=== PATIENT | female | born 1985 | race Caucasian/White ===

== ENCOUNTER 2018-06-25 09:52 | Inpatient (IN) | payer BC ==
--- NOTE | 2018-06-25 14:38 | HP ---
General Information - Reason for Visit IUP@40+6 admitted for SROM/early labor - General Information Maternal Age: 33 Grav: 2 Para: 0 SAB: 1 IEA: 0 Estimated Due Date: 06/19/18 Determined By: LMP Gestational Age in Weeks/Days: 40+6 Maternal Blood Type and Rh: A Positive - Results this Serology/RPR Result: Non-Reactive Rubella Result: Immune HBsAg Result: Negative HIV Result: Negative GBS Culture Result: Negative Past Medical History Pertinent Past Medical History: Non-Contributory Pertinent Past Surgical History: None Pertinent Family History: See Records Family History Comment: Father: bicuspid aortic valve - s/p replacement Mother: Meningioma Sister 1: multiple miscarriages Sister 2: SVT, ablation age 17 PGM: Breast cancer, leukemia PGF: diabetes, HTN, Skin cancer, metastatic squamous cell MGM: COPD, colon cancer MGF: diabetes, kidney disease - Antepartal Records Antepartal Records: Reviewed, Uncomplicated Review of Systems Constitutional: Uncomfortable CV Complaint: No Respiratory: Shortness of Breath: No Gastrointestinal: No Nausea/Vomiting Genitourinary: Leaking Fluid, No Dysuria, No Bleeding, Spotting Musculoskeletal: Contractions Neurological: No Headache, No Visual Changes Movement: Normal Exam Allergies/Adverse Reactions: Allergies Penicillins Allergy (Verified 06/25/18 10:44) Unknown Reaction Details Vital Signs 06/25/18 10:00 Temperature 98.8 F Pulse Rate 77 Respiratory 18 Rate Blood Pressure 128/87 (mmHg) O2 Sat by Pulse 100 Oximetry Lab Values - Entire Visit: Laboratory Tests 06/25/18 10:12 Vag Amniotic Fld Detect Positive - Measurements Height: 5 ft 7 in Weight: 189 lb Weight in lbs: 189.101829 Body Mass Index (BMI): 29.6 Pre- Weight: 150 lb Weight Gained This : 39 lbs and 0 ozs - Exam Breast: Breast Exam Deferred CVA: No CVA Tenderness Extremities: No Edema Heart: Normal Rhythm/Heart Sounds HEENT: No Significant Findings Lungs: Clear Bilaterally Rectal: Rectal Exam Deferred Reflexes: DTR 2+ Targeted Exam Findings See L&D Outpatient Visit Provider Note for Findings: N/A Estimated Weight: 8lbs Cervical Exam: 1cm Effacement: 50% Station: -1 Presenting Part: Vertex Membrane Status: SROM Amniotic Fluid Evaluation: Positive ROM Plus, Clear EFM Findings - External Monitor Findings Baseline Heart Rate: 120 External Monitor Findings: Accelerations Present, No Pattern of Variable or Late Decelerations, Variability Moderate External Monitor Findings Comment: No evidence metabolic acidemia Contractions: Irregular, Regular, Moderate, 45-90 Seconds Assessment/Plan - Assessment IUP@40+6, early labor VSS SROM, clear fluid Contractions q2-6, good resting tone, coping well with contractions No evidence of metabolic acidemia Pt desires no pain medication interventions May be amenable to augmentation given SROM, if labor does not progress Well supported by at bedside Anticipate progression to - Plan Plan: Admit - Anticipate Vaginal Delivery Plan Comment: Admit to L&D VE PRN Augmentation PRN - Date/Time of Admission Date of Admission: 06/25/18 Time of Admission: 10:45
[2018-06-25] MEDS ORDERED: Nalbuphine* 10 MG/ML 1 ML VIAL IV ONE (15:03)
[2018-06-25] MEDS ORDERED: Lactated Ringers 1000 ML Bag* 1,000 ML IV ONE (15:03)
[2018-06-25] MEDS ORDERED: Buffered Lidocaine 1% SYRIN* 1 ML/SYRINGE INTRADERM ONE (15:03)
[2018-06-25] MEDS ORDERED: Promethazine INJ(RESTRICTED)* 25 MG/ML 1 ML VIAL IV ONE (15:03)
[2018-06-25] MEDS ORDERED: Lactated Ringers 1000 ML Bag* 1,000 ML IV SCH (16:00)
--- NOTE | 2018-06-25 16:13 | PN ---
Progress Note - Progress Note Date of Service: 06/25/18 Note: Pt ambulating and using position changes to cope with contraction pain Pt remains afebrile, temp: 98.3 Contractions q2-4 minutes, good resting tone No evidence of metabolic acidemia VE: 1.5/70/-1 Pt with SROM x12 hours, discussed risks. vs. benefits of augmentation, given small cervical change, pt and opt to continue with expectant management Will repeat VE in 2-3 hours or sooner PRN Anticipate progression to active labor
--- NOTE | 2018-06-25 21:26 | PN ---
Progress Note - Progress Note Date of Service: 06/25/18 Note: Pt coping well with contraction pain at bedside and supportive Contractions q2-4 minutes, good resting tone No evidence of metabolic acidemia VE: /-1 Discussed IV pain medication options and nitrous oxide, pt opting out of pain meds at this time Anticipate progression to
--- NOTE | 2018-06-25 23:42 | PN ---
Progress Note - Progress Note Date of Service: 06/25/18 Note: Pt overwhelmed with contraction pain, requesting pain medication Risks vs. benefits of IV nubain/phenergan discussed, pt opts for this method of pain relief at bedside and supportive RNs at bedside to start IV Contractions q2-4 minutes, good resting tone No evidence of metabolic acidemia VE: 6/100/-1 Anticipate progression to
[2018-06-26 00:10] LABS: Hematocrit 37 % (33-41); Hemoglobin 12.6 g/dL (12.0-16.0); Mean Corpuscular HGB Conc 34 g/dL (31-36); Mean Corpuscular Hemoglobin 31 pg (27-31); Mean Corpuscular Volume 90 fL (80-97); Mean Platelet Volume 9.8 fL (7.4-10.4); Platelet Count 240 10^3/uL (150-450); Red Blood Count 4.08 10^6 /uL (3.70-4.87); Red Cell Distribution Width 13 % (10.5-15); White Blood Count 23.5 10^3/uL (3.5-10.8)
[2018-06-26 00:52] LABS: ABS Basophils 0 10^3/ul (0-0.2); ABS Eosinophils 0 10^3/ul (0-0.6); ABS Lymphocytes 1.1 10^3/ul (1.0-4.8); ABS Monocytes 0.8 10^3/ul (0-0.8); ABS Neutrophils 21.6 10^3/ul (1.5-7.7); ABS Nucleated RBC 0 10^3/ul; Eosinophil % 0 %; Lymphocyte % 4.6 %; Nucleated Red Blood Cells % 0
--- NOTE | 2018-06-26 03:10 | PN ---
Progress Note - Progress Note Date of Service: 06/26/18 Note: Pt with good relief from IV pain medication, now overwhelmed with contraction pain Contractions q2-4 minutes, good resting tone VE with good cervical change, 7.5/100/-1 Risks vs. benefits of nitrous oxide discussed with family, pt opting for this method of pain management Instructed on appropriate use Pharmacy consulted, okay to use nitrous oxide 2 hours after nubain/phenergan Will monitor baby and pt's vital signs at bedside and supportive Anticipate progression to
--- NOTE | 2018-06-26 06:03 | PN ---
Progress Note - Progress Note Date of Service: 06/26/18 Note: Pt with good relief using nitrous oxide, coping well Contractions q2-4 minutes, good resting tone VE: 9/100/0 Pt afebrile at bedside and supportive Anticipate progression to
--- NOTE | 2018-06-26 08:22 | PN ---
Progress Note - Progress Note Date of Service: 06/26/18 Note: Pt with good relief using nitrous oxide, coping well Contractions spacing, starting to push with strong contractions Pt 10cm/0 station Pt afebrile at bedside and supportive Anticipate progression to
--- NOTE | 2018-06-26 09:02 | PN ---
Progress Note - Progress Note Date of Service: 06/26/18 SOAP: Subjective: Pt struggling with ctx, has not yet begun to push actively. Some ctx stronger than others. Pt fatigued, coping fairly well. supportive. Attempted squatting with the squat bar, now side-lying in bed. Objective: FHR baseline 120, moderate variability, + accels, no decels Ctx Q 5 minutes, varying strength Cervical exam deferred Fluid clear BP 145/94, Temp 99.3 Pt voiding regularly Assessment: Pt was fully dilated on last exam, but not yet feeling a strong urge to push. Ctx spaced out, but appear to be increasing in frequency again. Possible fatigued uterus vs physiologic pause in ctx prior to second stage. No evidence of acidemia or chorioamnionitis. BP mildly elevated, likely due to pain, fatigue and stress. Plan: Offered Pitocin augmentation, pt declines at this time. Encourage restful positions, bearing down with strong ctx. When urge to push increases, will encourage more active pushing. Monitor BP, temp. Anticipate .
[2018-06-26] MEDS ORDERED: fentaNYL* 50 MCG/ML 2 ML VIAL (100 MCG VIAL) ONE (10:49)
[2018-06-26] MEDS ORDERED: Bupivacaine 0.25% SDV PF* 10 ML VIAL INJ ONE (10:49)
[2018-06-26] MEDS ORDERED: Oxytocin in LR* 20 UNITS/1,000 ML BAG IVPB ONE (11:04)
--- NOTE | 2018-06-26 11:05 | PN ---
Progress Note - Progress Note Date of Service: 06/26/18 SOAP: Subjective: Pt tried pushing with direction, initially made good progress, but struggling with the intensity of sensation to push effectively. Pulls away and closes legs when sensations become too intense. She has also been trying to coordinate using nitrous oxide with pushing which seems to be negatively impacting her effectiveness. at bedside, loving and supportive. Objective: FHR 125 per doppler, no deceleration with ctx UCs Q 4-5 minutes Fluid clear BP 131/71, temp 99.4 Assessment: Pt struggling with pushing given the intensity of sensation she is experiencing. No evidence of chorioamnionitis or acidemia. Plan: Pt requests pain relief. Recommend intrathecal. Pt agrees. Anesthesiologist Dr. Nunez notified, at bedside to perform. Recommend Pitocin augmentation to maximize time that pt is comfortable. Anticipate .
[2018-06-26] MEDS ORDERED: Phenylephrine 40 MCG/ML SYRINGE IV PUSH PRN ×2 (11:13)
[2018-06-26] MEDS ORDERED: Famotidine TAB* 20 MG PO PRN (11:13)
[2018-06-26] MEDS ORDERED: Sodium Citrate/Citric Acid* 15 ML UDC PO PRN (11:13)
[2018-06-26] MEDS ORDERED: Lactated Ringers 1000 ML Bag* 1,000 ML IV ONE (11:13)
[2018-06-26] MEDS ORDERED: Lactated Ringers 1000 ML Bag* 1,000 ML IV SCH ×2 (12:00→13:00)
[2018-06-26] MEDS ORDERED: ceFOXitin 2 GM IVPREMIX* 2 GM/50 ML BAG ONE (12:22)
[2018-06-26] MEDS ORDERED: Acetaminophen TAB* 325 MG PO PRN (12:24)
[2018-06-26] MEDS ORDERED: Dibucaine 1% 28.35 GM TUBE PR PRN (12:24)
[2018-06-26] MEDS ORDERED: Glycerin ADULT SUPP PR PRN (12:24)
[2018-06-26] MEDS ORDERED: Witch Hazel PAD* JAR TOPICAL PRN (12:24)
[2018-06-26] MEDS ORDERED: Simethicone TAB* 80 MG TAB.CHEW PO SCH (12:30)
[2018-06-26] MEDS ORDERED: ceFOXitin 2 GM IVPREMIX* 2 GM/50 ML BAG IVPB ONE (12:36)
[2018-06-26] MEDS ORDERED: Oxytocin in LR* 20 UNITS/1,000 ML BAG IVPB SCH (13:00)
--- NOTE | 2018-06-26 13:28 | OP ---
DATE OF OPERATION: 06/25/18 - ROOM #104 DATE OF : 83 SURGEON: Kirill Abbott MD ANESTHESIA: Intrathecal. PRE-OP DIAGNOSIS: Retained placenta. POST-OP DIAGNOSIS: Retained placenta. OPERATIVE PROCEDURE: Manual removal of placenta. COMPLICATIONS: None. ESTIMATED BLOOD LOSS: 100 cc. FINDINGS: This is a 33-year-old who had delivered her baby approximately 30 minutes prior to the procedure with an intrathecal fentanyl dosage. On exam under the anesthesia, the placenta was still attached. The uterus was markedly over to the right side and she was catheterized and 1000 cc of urine was obtained. DESCRIPTION OF PROCEDURE: The patient identified, procedure identified as a manual removal of placenta. The patient was under intrathecal anesthesia in the labor, delivery and recovery room. Cord was followed up into the uterus. The cervix was partially surrounding. The uterus with tone, but a hand was able to be placed within and with slow meticulous manner, the placenta was slowly pulled off the uterine wall. There were no shreds of placenta felt. As this was done, the placenta was exteriorized with the uterus in situ and a hand was placed back inside and palpably there were no other pieces of placenta palpable within the uterine cavity. The patient tolerated the procedure well and the laceration that occurred with delivery was prepared by the midwives. Good hemostasis was verified and the patient stayed in the labor, delivery, recovery room. [id number]/[facility] [place] #: [id number] MTDD
[2018-06-26] MEDS: Docusate CAP* 100 MG PO SCH ×2 (13:53→21:08)
--- NOTE | 2018-06-26 18:10 | PROCNOTE ---
[facility] OB: Delivery Note - Delivery A Date of : 06/26/18 Time of : 11:38 [place] Sex: Female Weight at : 6 lb 15 oz Score 1 Minute: 8 Score 5 Minutes: 9 Gestational Age in Weeks and Days at Delivery: 41 Weeks and 0 Days Delivery Method: Spontaneous Vaginal Labor: Spontaneous Did Patient attempt ?: N/A, No Previous Amniotic Fluid: Clear Estimated Blood Loss: 350 Anesthesia/Analgesia: ITF/Spinal for Labor, Nitrous-Labor Delivered By: Erin Marie - Nursery Level of Nursery: Regular/Bedside - Perineum Perineal Injury: 1st Degree Perineal Injury Comment: left labial Perineal Repair: By Delivering Practioner - Events Delivery Events of Note: Pitocin During Labor, Retained Placenta, Manual Removal of Placenta, ROM > 24 Hours - Additional Delivery Notes Additional Delivery Notes: Patient presented to L&D with SROM on 06/25/2018. Patient's labor progressed over time to full dilation. Patient coached on pushing but found it difficult to tolerate full intensity of sensation. At that time requested intrathecal and reported good pain relief afterward. Following intrathecal, patient was able to push effectively and with good descent. Patient brought to [facility] and was coached through slow, controlled delivery of the head. Shoulders followed easily with next push, infant placed on maternal abdomen with vigorous cry and HR >100. dried and stimulated, bulb suctioned due to copious secretions in 's mouth. After cord pulsations ceased, cord clamped x 2 and cut by infant's father. After no signs of placental separation 25 minutes post-delivery, Dr. Abbott called to bedside to evaluate. Patient at that time with no vaginal bleeding. Patient straight cathed by Dr. Abbott for 950 mls urine, however placenta still did not separate so manual removal performed by Dr. Abbott and tolerated well by patient. Patient with minimal vaginal bleeding, pitocin started at 250 cc/hr. Examination of the perineum revealed 1st degree perineal and left labial lacerations, repair completed using absorbable sutures resulting in good hemostasis and tissue approximation. Patient received single dose of cefoxitin 2g via IV for antibiotic prophylaxis. well. Mother and both stable at time of this note. DYE=654 ml.
[2018-06-26] MEDS: Ibuprofen TAB* 600 MG PO PRN (19:04)
[2018-06-27] MEDS: Ibuprofen TAB* 600 MG PO PRN (04:09)
[2018-06-27 06:21] LABS: ABS Basophils 0.1 10^3/ul (0-0.2); ABS Eosinophils 0.1 10^3/ul (0-0.6); ABS Lymphocytes 2.1 10^3/ul (1.0-4.8); ABS Monocytes 1.2 10^3/ul (0-0.8); ABS Neutrophils 11.2 10^3/ul (1.5-7.7); ABS Nucleated RBC 0 10^3/ul; Eosinophil % 0.8 %; Hematocrit 32 % (33-41); Hemoglobin 10.7 g/dL (12.0-16.0); Lymphocyte % 14.3 %; Mean Corpuscular HGB Conc 33 g/dL (31-36); Mean Corpuscular Hemoglobin 30 pg (27-31); Mean Corpuscular Volume 91 fL (80-97); Mean Platelet Volume 9.5 fL (7.4-10.4); Nucleated Red Blood Cells % 0; Platelet Count 171 10^3/uL (150-450); Red Blood Count 3.51 10^6 /uL (3.70-4.87); Red Cell Distribution Width 14 % (10.5-15); White Blood Count 14.7 10^3/uL (3.5-10.8)
[2018-06-27 07:50] VITALS: BP 112/78
[2018-06-27] MEDS: Docusate CAP* 100 MG PO SCH (08:59)
[2018-06-27] MEDS ORDERED: Ferrous Gluconate TAB* 324 MG TAB PO SCH (09:00)
--- NOTE | 2018-06-27 12:49 | PTEDU ---
Patient Name: HO MOLINA HO MOLINA selected video: Follow Me Mum: [employer] [facility] Successful to view on 06/03 at 12:48:38 PM from [id number]
== END 2018-06-27 15:00 | disposition home or self-care (01) | DRG 541 ==
LOC: MCHOBOUT 09:52 → MCHOB 10:54
PROVIDERS: ADMIT Advanced Practice Midwife; ATTEND Advanced Practice Midwife
PROC: 10E0XZZ Delivery of Products of Conception, External Approach (ICD-10-PCS; principal; 2018-06-25)
PROC: 4A1HXCZ Monitoring of Products of Conception, Cardiac Rate, External Approach (ICD-10-PCS; 2018-06-25)
PROC: 0HQ9XZZ Repair Perineum Skin, External Approach (ICD-10-PCS; 2018-06-25)
PROC: 0UQMXZZ Repair Vulva, External Approach (ICD-10-PCS; 2018-06-25)
PROC: 10D17Z9 Manual Extraction of Products of Conception, Retained, Via Natural or Artificial Opening (ICD-10-PCS; 2018-06-25)
DX: O48.0 Post-term pregnancy (principal); Z37.0 Single live birth; O73.0 Retained placenta without hemorrhage; O70.0 First degree perineal laceration during delivery; Z3A.41 41 weeks gestation of pregnancy; Z88.0 Allergy status to penicillin
CPT/HCPCS: 36415; 84112; 85025; 86850; 86900; 86901; A9270-GY; J0694; J2300; J2550; J3010; J3490

== ENCOUNTER 2020-02-17 11:01 | Inpatient (IN) ==
[2020-02-17] MEDS ORDERED: Buffered Lidocaine 1% SYRIN 1 ml INTRADERM ONE (11:36)
[2020-02-17] MEDS ORDERED: Lactated Ringers 1000 ml BAG 1,000 ML IV ONE (11:36)
[2020-02-17 11:56] LABS: ABS Basophils 0.1 10^3/ul (0-0.2); ABS Lymphocytes 1.5 10^3/ul (1.0-4.8); ABS Monocytes 0.6 10^3/ul (0-0.8); ABS Neutrophils 9.6 10^3/ul (1.5-7.7); Eosinophil % 0.4 %; Hematocrit 37 % (35-47); Hemoglobin 12.8 g/dL (12.0-16.0); Lymphocyte % 12.6 %; Mean Corpuscular HGB Conc 34 g/dL (31-36); Mean Corpuscular Hemoglobin 32 pg (27-31); Mean Corpuscular Volume 92 fL (80-97); Mean Platelet Volume 10.7 fL (7.4-10.4); Platelet Count 187 10^3/uL (150-450); Red Blood Count 4.07 10^6 /uL (3.70-4.87); Red Cell Distribution Width 14 % (10-15); White Blood Count 11.8 10^3/uL (3.5-10.8)
[2020-02-17] MEDS ORDERED: Lactated Ringers 1000 ml BAG 1,000 ML IV SCH ×2 (12:00→17:00)
[2020-02-17 12:10] LABS: Urine Benzodiazepine Screen None Detected (None Detect); Urine Cannabinoids Screen None Detected (None Detect); Urine Opiates Screen None Detected (None Detect)
[2020-02-17] MEDS ORDERED: Oxytocin in LR 20 UNITS/1,000 ML BAG IVPB ONE (15:22)
[2020-02-17] MEDS ORDERED: Dibucaine 1% OINT 28.35 GM TUBE PR PRN (16:14)
[2020-02-17] MEDS ORDERED: Witch Hazel PAD JAR TOPICAL PRN (16:14)
[2020-02-17] MEDS ORDERED: Glycerin ADULT 2.4 gm SUPP PR PRN (16:14)
[2020-02-17] MEDS ORDERED: Oxytocin in LR 20 UNITS/1,000 ML BAG IVPB SCH (17:00)
[2020-02-17] MEDS ORDERED: Lidocaine 1% VIAL 10 MG/ML VIAL ONE (18:30)
[2020-02-17] MEDS ORDERED: Phenylephrine 40 mcg/mL 10mL (400mcg) SYRINGE ONE (19:11)
[2020-02-18 06:58] LABS: ABS Basophils 0.1 10^3/ul (0-0.2); ABS Eosinophils 0.1 10^3/ul (0-0.6); ABS Lymphocytes 2.1 10^3/ul (1.0-4.8); ABS Monocytes 0.9 10^3/ul (0-0.8); ABS Neutrophils 9.1 10^3/ul (1.5-7.7); Eosinophil % 1.1 %; Hematocrit 32 % (35-47); Hemoglobin 10.9 g/dL (12.0-16.0); Lymphocyte % 16.9 %; Mean Corpuscular HGB Conc 34 g/dL (31-36); Mean Corpuscular Hemoglobin 31 pg (27-31); Mean Corpuscular Volume 92 fL (80-97); Mean Platelet Volume 10.4 fL (7.4-10.4); Platelet Count 170 10^3/uL (150-450); Red Blood Count 3.51 10^6 /uL (3.70-4.87); Red Cell Distribution Width 14 % (10-15); White Blood Count 12.2 10^3/uL (3.5-10.8)
[2020-02-18 12:38] VITALS: BP 118/75
== END 2020-02-18 16:04 | disposition home or self-care (01) | DRG 807 ==
LOC: MCHOBOUT 11:01 → MCHOB 11:31
PROVIDERS: ADMIT Midwife; ATTEND Midwife

== ENCOUNTER 2022-10-05 02:17 | Inpatient (IN) ==
[2022-10-05] MEDS ORDERED: Lactated Ringers 1000 ml BAG 1,000 ML IV ONE (03:53)
[2022-10-05] MEDS ORDERED: Nalbuphine 10 MG/ML 1 ML VIAL IV PRN (03:53)
[2022-10-05] MEDS ORDERED: Promethazine INJ(RESTRICTED) 25 MG/ML 1 ml VIAL IV PRN (03:53)
[2022-10-05] MEDS ORDERED: Buffered Lidocaine 1% SYRIN 1 ml INTRADERM ONE (03:53)
[2022-10-05] MEDS ORDERED: Glycerin ADULT 2.4 gm SUPP PR PRN (03:57)
[2022-10-05] MEDS ORDERED: Dibucaine 1% OINT 28.35 GM TUBE PR PRN (03:57)
[2022-10-05] MEDS ORDERED: Witch Hazel PAD JAR TOPICAL PRN (03:57)
[2022-10-05] MEDS ORDERED: Lactated Ringers 1000 ml BAG 1,000 ML IV SCH ×2 (04:00)
[2022-10-05 05:24] LABS: Urine Benzodiazepine Screen None Detected (None Detect); Urine Cannabinoids Screen None Detected (None Detect); Urine Opiates Screen None Detected (None Detect)
[2022-10-05] MEDS ORDERED: Lidocaine 1% VIAL 10 MG/ML VIAL 30 ML ONE (06:47)
[2022-10-06 07:06] LABS: ABS Basophils 0.1 10^3/uL (0.0-0.1); ABS Eosinophils 0.1 10^3/uL (0.0-0.5); ABS Lymphocytes 2.3 10^3/uL (1.0-4.8); ABS Monocytes 0.7 10^3/uL (0.0-0.9); ABS Neutrophils 6.7 10^3/uL (1.5-7.6); ABS Nucleated RBC 0.01 10^3/ul; Eosinophil % 1.3 %; Hematocrit 31.4 % (35-45); Hemoglobin 10.9 g/dL (11.5-14.3); Lymphocyte % 23.2 %; Mean Corpuscular Hemoglobin 30.1 pg (27-33); Mean Corpuscular Hgb Conc 34.7 g/dL (31-36); Mean Corpuscular Volume 86.9 fL (80-97); Mean Platelet Volume 9.9 fL (7.5-11.2); Nucleated Red Blood Cells % 0.1 /100 WBC (0.0-0.4); Platelet Count 176 10^3/uL (150-450); Red Blood Count 3.61 10^6/uL (3.63-4.92); Red Cell Distribution Width 14.8 % (12-17); White Blood Count 9.9 10^3/uL (3.8-11.8)
[2022-10-06 08:46] VITALS: BP 126/81
== END 2022-10-06 13:39 | disposition home or self-care (01) | DRG 807 ==
LOC: MCHOBOUT 02:17 → MCHOB 02:29
PROVIDERS: ADMIT Advanced Practice Midwife; ATTEND Advanced Practice Midwife